=== PATIENT | male | born 1965 | race Hispanic/Latino ===

== ENCOUNTER 2018-12-04 22:20 | Emergency (ER) | payer SELFPAY ==
[~2018-12-04] VITALS: Ht 170.2 cm; Wt 71.7 kg
[2018-12-04] MEDS ORDERED: ASPIRIN 81 MG CHEW TAB PO ONE (23:15)
--- NOTE | 2018-12-04 23:49 | Diagnostic Imaging Report ---
EXAMINATION: CXR 2 VIEW - HOPD INDICATION: Chest pain COMPARISON: None FINDINGS: PA and lateral views TUBES and LINES: None. LUNGS: Lungs are well inflated. Lungs are clear. There is no evidence of pneumonia or pulmonary edema. PLEURA: No pleural effusion or pneumothorax. HEART AND MEDIASTINUM: The cardiomediastinal silhouette is unremarkable. BONES AND SOFT TISSUES: No acute osseous lesion. Soft tissues are unremarkable. UPPER ABDOMEN: No free air under the diaphragm. IMPRESSION: No acute thoracic abnormality. Signed by: Daniel Davila DO on 12/04/2018 11:45 PM
[2018-12-05] MEDS ORDERED: PRILOSEC OTC20 MG PO (00:27)
[2018-12-05] MEDS ORDERED: ASPIRIN 81 MG CHEW TAB ONE (01:31)
== END 2018-12-05 02:30 | disposition home or self-care (01) ==
LOC: FSED 22:20
DX: R07.89 Other chest pain (principal)
CPT/HCPCS: 71046; 80053; 84484; 85025; 85379; 93005; 99284